=== PATIENT | male | born 1940 | race Caucasian/White ===

== ENCOUNTER 2017-02-04 16:18 | Inpatient (IN) ==
[2017-02-04] MEDS ORDERED: ACETAMINOPHEN 500 MG TABLET PO ONE (23:05)
[2017-02-04] MEDS: DOXYCYCLINE HYCLATE 100 MG TABLET.ORL PO SCH (23:15)
[2017-02-04] MEDS: BENZONATATE 100 MG CAPSULE PO PRN (23:17)
[2017-02-04] MEDS ORDERED: NAPROXEN 250 MG TABLET PO ONE (23:18)
[2017-02-05] MEDS: ACETAMINOPHEN 325 MG TABLET PO SCH ×2 (04:37→08:08)
[2017-02-05] MEDS: NAPROXEN 250 MG TABLET PO SCH (08:06)
[2017-02-05] MEDS: DOXYCYCLINE HYCLATE 100 MG TABLET.ORL PO SCH ×2 (08:07→20:57)
[2017-02-05] MEDS ORDERED: EZETIMIBE 10 MG TABLET PO SCH (09:00)
[2017-02-05] MEDS ORDERED: ASPIRIN 81 MG TAB.CHEW CHEWED SCH (09:00)
[2017-02-05] MEDS ORDERED: amLODIPine 10 MG TABLET PO SCH (09:00)
--- NOTE | 2017-02-05 14:07 | Internal Medicine Consult Note ---
Medical - CN: HPI - Data of Consult Consult date: 02/05/17 Requesting Physician: Hernandez Salter Primary Care Provider: Emmanuel Harding - Consult Narrative Reason for consult: medical management of chr medical conditions. History of present illness: Mr. Maurer is a 76 year old Male who is admitted to the hospital by Dr Salter from [facility] after a Back injection for lower back pain. The patient notes he has chr back pain, has seen Dr Land in the past, he has also seen chiropractor, he was then referred to pain clinic for localized injection, the patient notes he had one injection a few weeks ago which helped some, but then his pain came back, then he had another injection done yesterday. After the procedure the patient was not able to move his extremities , and had loss sensation to his legs, he also apparently lost bowel, bladder function? The patient underwent an MRI of the LS spine (without DWI), the patient was admitted to the hospital for observation. Medicine was consulted for medical management The patient has no complaints ,besides loss of sensation and movement below his inguinal region. He notes no significant changes since admission, Dr Salter is planning to get him to rehab to [facility] or [place] The patient denies any other complaints, renetly had some resp illness and was placed on doxycycline for same. He has been running a low grade temp since yesterday. Has no cough, no chills or rigors, no headache or dizziness. CC: Hernandez Salter All systems: reviewed and no additional remarkable complaints except as stated ( as per HPI) Medical - CN: PMH Medical history: HTN HLD chr back pain Surgical history: Right TKA Appendix removed when he was 14 yrs old Pertinent family history: mother from heart failure father from cva likely grand mother on mothers side has Cancer unknown. no h/o lupus in family or other autoimmune disease. Social history: smoked pipe in college drinks 1-2 glasses of wine a day no THC recreationally, but has used CBD For knee pain, Medical - CN: Meds Home Medications Medication Instructions Recorded Confirmed Type Acetaminophen [Tylenol] 2 tab PO BID 02/04/17 02/04/17 History Aspirin [Elena Chewable Aspirin] 81 mg PO DAILY 02/04/17 02/04/17 History Benzonatate [Tessalon Perle] 1 - 2 tab PO HS PRN 02/04/17 02/04/17 History Doxycycline 100 mg PO BID 02/04/17 02/04/17 History Ezetimibe 10 mg PO DAILY 02/04/17 02/04/17 History Naproxen Sodium 220 - 240 mg PO DAILY 02/04/17 02/04/17 History amLODIPine [Norvasc] 10 mg PO DAILY 02/04/17 02/04/17 History Allergies Allergy/AdvReac Type Severity Reaction Status Date / Time [id number] Reductase AdvReac Verified 02/04/17 22:24 Inhibitor Medical - CN: Exam - Constitutional Vitals: Temp Pulse Resp BP Pulse Ox 99.7 F H 99 H 16 147/68 94 02/05/17 08:08 02/05/17 08:00 02/05/17 08:00 02/05/17 08:00 02/05/17 08:00 Exam: GENERAL: The patient is a well-developed, well-nourished in no apparent distress. Is alert and oriented x3. VITAL SIGNS: Reviewed and as noted elsewhere. HEENT: Head is normocephalic and atraumatic. Extraocular muscles are intact. Pupils are equal, round, and reactive to light. Nares appeared normal. Mouth appears any without lesions. Mucous membranes are moist. NECK: Normal to inspection, Supple, No lymphadenopathy or thyromegaly. LUNGS: Air entry equal on both sides, no wheezing, crackles or rhonchi noted. No accessory muscles of respiration HEART: Regular rate and rhythm normal, S1 and S2 heard, no Gallop, S3 or Rub Noted, No Gross murmur heard. ABDOMEN: Soft, nontender, and nondistended. Positive bowel sounds. No hepatosplenomegaly was noted. EXTREMITIES: No cyanosis, clubbing, rash, lesions or edema. NEUROLOGIC: Cranial nerves II through XII are grossly intact.motor and sensory upper extermity intact Lower extremity, patient has deep touch sensation intact, light touch diminished , motor 0/0 both extremity, he has some + strength on hip extensors if his hips are fully flexed. reflex are absent, babinski absent/ no response. PSYCHIATRIC: Normal affect, Normal Mood. Appropriate Behavior. SKIN: No ulceration or wounds noted, No jaundice, No rash noted. Medical - CN: A/P - Narrative A/P Narrative: A/P Acute Spinal cord Injury/ Acute infarction ? : Management as per Dr Salter, given that TWI images were not done, and Throacic MRI not done, will get these done to complete workup Low grade fever: etiology:? Recent URI, get CXR, cbc, inpatient panel, check esr , crp, check procalcitonin HTN: Bp stable, start norvasc, his home medicatino HLD on zetia, allergic to statins, continue same DVT hep sq patient likely will be xferred to Rehab. unless any new findings on MRI
[2017-02-05 14:59] LABS: Basophils # (Auto) 0 K/mcL (0.0-0.3); Basophils % (Auto) 0.1 % (0.0-2.0); Eosinophils # (Auto) 0 K/mcL (0.0-0.7); Eosinophils % (Auto) 0.4 % (0.0-7.0); Granulocytes % (Auto) 87.5 % (38.0-78.0); Lymphocytes # (Auto) 0.7 K/mcL (1.5-4.8); Lymphocytes % (Auto) 6.7 % (15.5-49.0); Mean Cell Volume 93.4 fL (80.0-100.0); Mean Corpuscular HGB Conc 34.5 g/dL (31.0-36.0); Mean Corpuscular Hemoglobin 32.2 pg (26.0-34.0); Monocytes # (Auto) 0.6 K/mcL (0.1-0.9); Monocytes % (Auto) 5.3 % (1.0-12.0); Platelet Count 179 K/mcL (140-440); RBC 5.25 M/mcL (4.50-5.90); Red Cell Distribution Width 12.4 % (11.5-14.5)
[2017-02-05 15:17] LABS: ALT/SGPT 21 U/l (0-40); Albumin/Globulin Ratio 1.4 (1.0-2.3); Alkaline Phosphatase 67 U/L (39-117); Bilirubin,Direct < 0.2 mg/dL (0.0-0.3); Blood Urea Nitrogen 20 mg/dl (8-23); C-Reactive Protein 0.5 mg/dl (0.0-0.8); Gamma Glutamyl Transpeptidase 30 U/L (8-61); Magnesium 2.3 mg/dL (1.6-2.5); Uric Acid 4.6 mg/dL (2.5-8.0)
[2017-02-05 15:43] LABS: Erythrocyte Sedimentation Rate 15 mm/hr (0-15)
--- NOTE | 2017-02-05 16:34 | Magnetic Resonance Report ---
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 Diffusion-weighted imaging was also performed. Findings: There is abnormal increased signal and swelling of the spinal cord from T10 to the conus. It has increased signal on STIR and T2. The conus medullaris is at lower level of L1. The signal changes are new since a prior lumbar MRI done yesterday. Above the level of T10 and the thoracic cord is normal in size signal and contour. The diffusion-weighted sequences are not helpful on account of limited resolution and artifactual increased signal in the cord throughout the entire thoracic cord. There is no hematoma or abnormal fluid collection in the spinal canal following the recent epidural injection. No abscess is seen in the soft tissues around the spine and there is also no evidence of discitis or osteomyelitis.. There are stable old compression fractures at T7 and T10 with more subtle compression fractures at T8, T9 and L1. No recent fracture is present. There are small posterior bulges and spurs at multiple levels in the mid and upper thoracic spine as well as at T11-12. No disc herniation is present. There is no spinal canal or neural foraminal stenosis. Incidentally noted are few fat-containing intraosseous hemangiomas in the mid and lower thoracic spine. Impression: Swelling and signal changes throughout the spinal cord from T10 to L1. This could be due to an acute infarct or acute myelitis. Dr. Hadley was called with results Interpreted and Authenticated by: Thomas Vega 02/05/17
--- NOTE | 2017-02-05 16:35 | XRay Report ---
HISTORY: Reason for Exam:fever FINDINGS: The lungs are clear and well expanded. The heart size and pulmonary vasculature are normal. The aorta is tortuous area there has been no significant change since 12/15/16. IMPRESSION: Normal chest Interpreted and Authenticated by: Thomas Vega 02/05/17
[2017-02-05] MEDS: ACETAMINOPHEN 500 MG TABLET PO SCH (20:57)
[2017-02-05] MEDS: HEPARIN 5,000 UNIT/ML VIAL SQ SCH (20:58)
[2017-02-05] MEDS: BENZONATATE 100 MG CAPSULE PO PRN (21:11)
[2017-02-06] MEDS: amLODIPine 10 MG TABLET PO SCH (07:54)
[2017-02-06] MEDS: NAPROXEN 250 MG TABLET PO SCH (07:54)
[2017-02-06] MEDS: DOXYCYCLINE HYCLATE 100 MG TABLET.ORL PO SCH ×2 (07:54→20:01)
[2017-02-06] MEDS: ASPIRIN 81 MG TAB.CHEW PO SCH (07:54)
[2017-02-06] MEDS: EZETIMIBE 10 MG TABLET PO SCH (07:55)
[2017-02-06] MEDS: ACETAMINOPHEN 500 MG TABLET PO SCH ×2 (07:55→20:01)
[2017-02-06] MEDS: HEPARIN 5,000 UNIT/ML VIAL SQ SCH ×2 (10:23→20:02)
--- NOTE | 2017-02-06 10:34 | Internal Med Progress Note ---
Medical - PN: Subj Patient information: Note initiated : 02/06/17 at 10:32 am Service Date, if different from initiated Date: [] Patient: Rowdy Maurer 76 y/o M admitted on 02/04/17 for Lower Extremity Paralysis. Chief Complaint: [] Interval history: Mr. Maurer is a 76 year old Male who is admitted to the hospital by Dr Salter from [facility] after a Back injection for lower back pain. The patient notes he has chr back pain, has seen Dr Land in the past, he has also seen chiropractor, he was then referred to pain clinic for localized injection, the patient notes he had one injection a few weeks ago which helped some, but then his pain came back, then he had another injection done yesterday. After the procedure the patient was not able to move his extremities , and had loss sensation to his legs, he also apparently lost bowel, bladder function? The patient underwent an MRI of the LS spine (without DWI), the patient was admitted to the hospital for observation. Medicine was consulted for medical management The patient has no complaints ,besides loss of sensation and movement below his inguinal region. He notes no significant changes since admission, Dr Salter is planning to get him to rehab to [facility] or [place] The patient denies any other complaints, renetly had some resp illness and was placed on doxycycline for same. He has been running a low grade temp since yesterday. Has no cough, no chills or rigors, no headache or dizziness. Feb 06 patient seen examined, no acute overnight events, temp overnight afebirle, low grade temp this AM, patient has neg x ray, clinically asymptomatic, check UA, temp secondary to spinal infarct? the patients MRI reviewed, given his clinical presentation, myelelits is unlikely, spinal cord infarct is more likely. This is being managed by Dr Salter The patients home meds resumed, he is on doxycycline for URI/ cough symptoms, will need additional 5 days of treatment No other issues or complaints reported Pertinent ROS: Denies headache, dizziness Denies chest pain, palpitations Denies cough or shortness of breath Denies abdominal pain, nausea or vomiting. - Constitutional Vitals: Vital Signs Temp Pulse Resp BP Pulse Ox 99.7 F H 88 16 160/100 98 02/06/17 07:47 02/06/17 07:43 02/06/17 07:47 02/06/17 07:47 02/06/17 04:00 Period Temp Pulse Resp BP Sys/Conroy Pulse Ox Last 24 Hr 98.2 F-99.7 F 86-91 16-18 128-160/68-100 95-98 Intake and Output 02/05/17 02/06/17 02/06/17 21:59 05:59 13:59 Output Total 1500 / 1500 Balance -1500 / -1500 Weight 221 lb Intake & Output: Intake & Output 02/05/17 02/06/17 02/06/17 21:59 05:59 13:59 Output Total 1500 / 1500 Balance -1500 / -1500 Weight 221 lb Output: Urine Catheter Amount 1500 / 1500 Exam: Constitutional; Afebrile, cooperative, alert, not in distress. Eyes- No icterus, , No periorbital swelling Ears- Ext ear normal, hearing normal to conversation. Neck- Midline trachea, supple Respiratory system: Air Entry equal on both sides, No crackles or wheezing, no rhonchi. CVS- Rate rhythm regular, S1,S2 heard, no gallop, no rub. Abdomen- Soft nontender abdomen, no organomegaly, no tenderness, no guarding or rigidity, [employer]- AOOx3, un changed neuro exam pt in WC Medical - PN: Obj Da - Labs CBC & Chem 7: 02/05/17 14:10 02/05/17 14:10 Labs: Abnormal Lab Results 02/05/17 02/05/17 14:10 14:10 Hgb 16.9 H Gran % 87.5 H Lymph % (Auto) 6.7 L Gran # 9.6 H Lymph # (Auto) 0.7 L Carbon Dioxide 19 L Anion Gap 17.0 H Glucose 166 H Total Bilirubin 1.1 H Lactate Dehydrogenase 252 H Triglycerides 188 H Meds: Medications Acetaminophen (Tylenol) 1,000 mg PO BID [facility] Last Admin: 02/06/17 07:55 Dose: 1,000 mg Amlodipine Besylate (Norvasc) 10 mg PO DAILY [facility] Last Admin: 02/06/17 07:54 Dose: 10 mg Aspirin (Aspirin) 81 mg PO DAILY [facility] Last Admin: 02/06/17 07:54 Dose: 81 mg Benzonatate (Tessalon) 0 mg PO HSP PRN PRN Reason: Cough Last Admin: 02/05/17 21:11 Dose: 100 mg Doxycycline Hyclate (Doxycycline Hyclate) 100 mg PO BID [facility] Stop: 02/10/17 08:59 Last Admin: 02/06/17 07:54 Dose: 100 mg Ezetimibe (Zetia) 10 mg PO DAILY [facility] Last Admin: 02/06/17 07:55 Dose: 10 mg Heparin Sodium (Porcine) (Heparin) 5,000 unit SQ Q12 [facility] Last Admin: 02/06/17 10:23 Dose: 5,000 unit Naproxen (Naprosyn) 500 mg PO DAILY [facility] Last Admin: 02/06/17 07:54 Dose: 500 mg Medical - PN: A/P - Time Spent With Patient Total time spent is greater than 50% in coordination of care (as documented) at patient's floor/unit and/or counseling patient: - Narrative A/P Narrative: A/P Acute Spinal cord Injury/ Acute infarction : Management as per Dr Salter, will need rehab Low grade fever: etiology: unknow, check ua, procalcitonin is neg, pt on doxy for URI symptoms continue same. HTN: Bp stable, start norvasc, monitor. HLD on zetia, allergic to statins, continue same DVT hep sq Medical - PN: Qual - Stroke Symptom Onset Unknown: No - VTE Deep Vein Thrombosis/Pulmonary Embolism Present on Admission: No
[2017-02-06 12:10] LABS: Appearance,Urine CLEAR; Bacteria,Urine 0 /hpf (0); Bilirubin,Urine NEG (NEG); Color,Urine YELLOW; Glucose,Urine (UA) NEGATIVE (NEG); Leukocyte Esterase,Urine NEG /uL (NEG); Mucus,Urine MANY /hpf (0); Nitrate,Urine NEG (NEG); Protein,Urine NEG (NEG); Specific Gravity,Urine 1.032 (1.000-1.035); Urine Blood NEG mg/dL (<0.03); Urine Hyaline Cast 2 /lpf (0-2); Urine RBC 11 /hpf (0-1); Urine Squamous Epithelial Cell 0 /hpf (0-4); Urine WBC 4 /hpf (0-4)
--- NOTE | 2017-02-06 15:54 | Internal Med Progress Note ---
Medical - PN: Subj Patient information: Note initiated : 02/06/17 at 3:35 pm Service Date, if different from initiated Date: [] Patient: Rowdy Maurer 76 y/o M admitted on 02/06/17 for Lower Extremity Paralysis. Chief Complaint: Bilateral lower leg paralysis. S: Pt. in good spirits playing guitar and singing. O: VSS no neurologic change A: Conus Medullaris Syndrome P: Attempt to transfer to rehabilitation facility was not accomplished. Apparently pt requires PT, OT and Neurology Consult before [facility] can accept. Likely this won't occur until at least next Friday when OT is available. At this point will continue what can be provided at this facility until transfer obtained. Hospitalist will continue to medically manage.[] - Constitutional Vitals: Vital Signs Temp Pulse Resp BP Pulse Ox 99.3 F H 86 18 130/89 95 02/06/17 12:00 02/06/17 12:00 02/06/17 12:00 02/06/17 12:00 02/06/17 12:00 Period Temp Pulse Resp BP Sys/Conroy Pulse Ox Last 24 Hr 98.2 F-99.7 F 86-91 16-18 128-160/68-100 95-98 Intake and Output 02/06/17 02/06/17 02/06/17 05:59 13:59 21:59 Intake Total 760 / 760 Output Total 1500 / 1500 450 / 450 Balance -1500 / -1500 310 / 310 Intake & Output: Intake & Output 02/06/17 02/06/17 02/06/17 05:59 13:59 21:59 Intake Total 760 / 760 Output Total 1500 / 1500 450 / 450 Balance -1500 / -1500 310 / 310 Intake: Oral 760 / 760 Output: Urine Catheter Amount 1500 / 1500 450 / 450 Other: Percent of Meal Consumed 100% Medical - PN: Obj Da - Labs CBC & Chem 7: 02/05/17 14:10 02/05/17 14:10 Labs: Abnormal Lab Results 02/06/17 02/05/17 02/05/17 11:08 14:10 14:10 Hgb 16.9 H Gran % 87.5 H Lymph % (Auto) 6.7 L Gran # 9.6 H Lymph # (Auto) 0.7 L Carbon Dioxide 19 L Anion Gap 17.0 H Glucose 166 H Total Bilirubin 1.1 H Lactate Dehydrogenase 252 H Triglycerides 188 H Urine Urobilinogen 4.0 A Urine RBC 11 H Urine Mucus Many A Meds: Medications Acetaminophen (Tylenol) 1,000 mg PO BID [facility] Last Admin: 02/06/17 07:55 Dose: 1,000 mg Amlodipine Besylate (Norvasc) 10 mg PO DAILY [facility] Last Admin: 02/06/17 07:54 Dose: 10 mg Aspirin (Aspirin) 81 mg PO DAILY [facility] Last Admin: 02/06/17 07:54 Dose: 81 mg Benzonatate (Tessalon) 0 mg PO HSP PRN PRN Reason: Cough Last Admin: 02/05/17 21:11 Dose: 100 mg Doxycycline Hyclate (Doxycycline Hyclate) 100 mg PO BID [facility] Stop: 02/10/17 08:59 Last Admin: 02/06/17 07:54 Dose: 100 mg Ezetimibe (Zetia) 10 mg PO DAILY [facility] Last Admin: 02/06/17 07:55 Dose: 10 mg Heparin Sodium (Porcine) (Heparin) 5,000 unit SQ Q12 [facility] Last Admin: 02/06/17 10:23 Dose: 5,000 unit Naproxen (Naprosyn) 500 mg PO DAILY [facility] Last Admin: 02/06/17 07:54 Dose: 500 mg Medical - PN: A/P - Time Spent With Patient Total time spent is greater than 50% in coordination of care (as documented) at patient's floor/unit and/or counseling patient: Medical - PN: Qual - Stroke Symptom Onset Unknown: No - VTE Deep Vein Thrombosis/Pulmonary Embolism Present on Admission: No
[2017-02-06] MEDS: BENZONATATE 100 MG CAPSULE PO PRN (20:01)
[2017-02-07] MEDS: HEPARIN 5,000 UNIT/ML VIAL SQ SCH (08:14)
[2017-02-07] MEDS: NAPROXEN 250 MG TABLET PO SCH (08:14)
[2017-02-07] MEDS: ASPIRIN 81 MG TAB.CHEW PO SCH (08:15)
[2017-02-07] MEDS: ACETAMINOPHEN 500 MG TABLET PO SCH (08:15)
[2017-02-07] MEDS: amLODIPine 10 MG TABLET PO SCH (08:15)
[2017-02-07] MEDS: EZETIMIBE 10 MG TABLET PO SCH (08:15)
--- NOTE | 2017-02-07 09:19 | Internal Med Progress Note ---
Medical - PN: Subj Patient information: Note initiated : 02/07/17 at 9:08 am Service Date, if different from initiated Date: [] Patient: Rowdy Maurer 76 y/o M admitted on 02/06/17 for Lower Extremity Paralysis. Chief Complaint: []Bilateral leg paralysis S: Pt. states he slept good last evening and is continuing to work with PT and passive movement range of motion. O: Awake, Alert, appropriate and remarkably upbeat with extremely good attitude. VSS, no changes in neuro status A: Conus Medullaris Syndrome P: Pt. will be evaluated by OT today and continues to be working with PT. Pt requires documentation that PT and OT tolerated and presently attempting to fulfill that criteria. Likely [facility] still will not have a bed available until midweek next week. Pts. preference is [facility] for rehab.. Until [facility] has accepted we will continue provide services we have available. Hospitalist will continue to manage pt. medically. - Constitutional Vitals: Vital Signs Temp Pulse Resp BP Pulse Ox 97.0 F 69 20 148/93 95 02/07/17 08:00 02/07/17 08:00 02/07/17 08:00 02/07/17 08:00 02/07/17 08:00 Period Temp Pulse Resp BP Sys/Conroy Pulse Ox Last 24 Hr 97.0 F-99.3 F 69-103 16-20 116-148/72-93 91-95 Intake and Output 02/06/17 02/07/17 02/07/17 21:59 05:59 13:59 Intake Total 800 / 800 300 / 300 Output Total 750 / 750 950 / 950 Balance 50 / 50 -650 / -650 Weight 221 lb Intake & Output: Intake & Output 02/06/17 02/07/17 02/07/17 21:59 05:59 13:59 Intake Total 800 / 800 300 / 300 Output Total 750 / 750 950 / 950 Balance 50 / 50 -650 / -650 Weight 221 lb Intake: Oral 800 / 800 300 / 300 Output: Urine Catheter Amount 750 / 750 950 / 950 Medical - PN: Obj Da - Labs CBC & Chem 7: 02/05/17 14:10 02/05/17 14:10 Labs: Abnormal Lab Results 02/06/17 02/05/17 02/05/17 11:08 14:10 14:10 Hgb 16.9 H Gran % 87.5 H Lymph % (Auto) 6.7 L Gran # 9.6 H Lymph # (Auto) 0.7 L Carbon Dioxide 19 L Anion Gap 17.0 H Glucose 166 H Total Bilirubin 1.1 H Lactate Dehydrogenase 252 H Triglycerides 188 H Urine Urobilinogen 4.0 A Urine RBC 11 H Urine Mucus Many A Meds: Medications Acetaminophen (Tylenol) 1,000 mg PO BID [facility] Last Admin: 02/07/17 08:15 Dose: 1,000 mg Amlodipine Besylate (Norvasc) 10 mg PO DAILY [facility] Last Admin: 02/07/17 08:15 Dose: 10 mg Aspirin (Aspirin) 81 mg PO DAILY [facility] Last Admin: 02/07/17 08:15 Dose: 81 mg Benzonatate (Tessalon) 0 mg PO HSP PRN PRN Reason: Cough Last Admin: 02/06/17 20:01 Dose: 100 mg Doxycycline Hyclate (Doxycycline Hyclate) 100 mg PO BID [facility] Stop: 02/10/17 08:59 Last Admin: 02/06/17 20:01 Dose: 100 mg Ezetimibe (Zetia) 10 mg PO DAILY [facility] Last Admin: 02/07/17 08:15 Dose: 10 mg Heparin Sodium (Porcine) (Heparin) 5,000 unit SQ Q12 [facility] Last Admin: 02/07/17 08:14 Dose: 5,000 unit Naproxen (Naprosyn) 500 mg PO DAILY [facility] Last Admin: 02/07/17 08:14 Dose: 500 mg Medical - PN: A/P - Time Spent With Patient Total time spent is greater than 50% in coordination of care (as documented) at patient's floor/unit and/or counseling patient: Medical - PN: Qual - Stroke Symptom Onset Unknown: No - VTE Deep Vein Thrombosis/Pulmonary Embolism Present on Admission: No
[2017-02-07] MEDS: DOXYCYCLINE HYCLATE 100 MG TABLET.ORL PO SCH (10:35)
--- NOTE | 2017-02-07 14:11 | Discharge Summary ---
Medical - DS: Prov Patient information: Note initiated : 02/07/17 at 2:09 pm Service Date, if different from initiated Date: [] Patient: Rowdy Maurer 76 y/o M admitted on 02/04/17 for Lower Extremity Paralysis. Chief Complaint: LE paralysis Date of admission: 02/06/17 12:09 Discharge date: 02/07/17 Primary care physician: Emmanuel Harding Admitting clinician: Hernandez Salter Discharging clinician: Rina Pelayo Medical - DS: Meds - Discharge Medications Active and Home Medications: Home Medications Acetaminophen [Tylenol] 2 tab PO BID 02/04/17 [History Confirmed 02/04/17 Last Taken 02/04/17 08:00] Aspirin [Elena Chewable Aspirin] 81 mg PO DAILY 02/04/17 [History Confirmed Last Taken 02/04/17 08:00] Benzonatate [Tessalon Perle] 1 - 2 tab PO HS PRN 02/04/17 [History Confirmed Last Taken 02/03/17 21:00] Doxycycline 100 mg PO BID 02/04/17 [History Confirmed 02/04/17 Last Taken 08:00] Ezetimibe 10 mg PO DAILY 02/04/17 [History Confirmed 02/04/17 Last Taken 08:00] Naproxen Sodium 220 - 240 mg PO DAILY 02/04/17 [History Confirmed 02/04/17 Last Taken 02/04/17 08:00] amLODIPine [Norvasc] 10 mg PO DAILY 02/04/17 [History Confirmed 02/04/17 Last Taken 02/04/17 08:00] Medical - DS: Hosp Hospital course: From the Medicine Consult notes: Feb 05 Mr. Maurer is a 76 year old Male who is admitted to the hospital by Dr Salter from [facility] after a Back injection for lower back pain. The patient notes he has chronic back pain, has seen Dr Land in the past, he has also seen chiropractor, he was then referred to pain clinic for localized injection, the patient notes he had one injection a few weeks ago which helped some, but then his pain came back, then he had another injection done yesterday. After the procedure the patient was not able to move his extremities, and had loss sensation to his legs, he also apparently lost bowel, bladder function? The patient underwent an MRI of the LS spine (without DWI), the patient was admitted to the hospital for observation. Medicine was consulted for medical management The patient has no complaints ,besides loss of sensation and movement below his inguinal region. He notes no significant changes since admission, Dr Salter is planning to get him to rehab. The patient denies any other complaints, recently had some resp illness and was placed on doxycycline for same. He has been running a low grade temp since yesterday. Has no cough, no chills or rigors, no headache or dizziness. Feb 06 Patient seen examined, no acute overnight events, temp overnight afebirle, low grade temp this AM. Patient has neg x ray, clinically asymptomatic, check UA, temp secondary to spinal infarct? The patients MRI reviewed, given his clinical presentation, myelelits is unlikely, spinal cord infarct is more likely. This is being managed by Dr Salter The patients home meds resumed, he is on doxycycline for URI/ cough symptoms, will need additional 5 days of treatment No other issues or complaints reported. Transfer to [facility] was attempted, however is not felt he needed further acute hospitalization and a higher level of care. Movement towards rehabilitation placement started. Occupational therapy evaluation and not yet been completed. Looking at [facility] in [place]. No bed immediately available. Feb 07 Patient is stable. Kendall himself in the halls and wheelchair. Afebrile. Eager to get rehabilitation started. [facility] in [place] does not have a bed until next week, however [facility] in [place] does and can accept patient. Discussed with Dr. Cruz, attending covering for Dr. Salter as well as with patient. He is willing to go to [facility]. Discharge diagnosis: T10-L1 Spinal cord infarct - Time Spent with Patient Total time spent providing and/or coordinating discharge services: Greater than 30 minutes Medical - DS: Exam - Constitutional Vitals: Vital Signs Temp Pulse Resp BP Pulse Ox 02/07/17 12:00 97.4 F 20 137/89 95 02/07/17 08:00 97.0 F 69 20 148/93 95 02/07/17 04:00 97.9 F 69 20 132/88 93 02/06/17 23:57 97.9 F 84 20 116/72 91 02/06/17 20:00 98.0 F 103 H 16 135/89 91 02/06/17 16:00 98.9 F 100 H 18 123/89 95 Intake and Output 02/07/17 02/07/17 02/07/17 05:59 13:59 21:59 Intake Total 300 / 300 Output Total 950 / 950 Balance -650 / -650 Intake: Oral 300 / 300 Output: Urine Catheter Amount 950 / 950 Additional comments: Gen: In NAD Chest: Clear, unlabored CV: Regular Abd: Soft Neuro: A and O x 4; 0/5 strength in BLE, no reflexes Medical - DS: Data Labs on day of discharge: Preliminary micro results at discharge 02/05/17 14:18 Blood Culture - Preliminary Blood 02/05/17 14:10 Blood Culture - Preliminary Blood - Impressions MRI Spine w/o contrast: History: 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 Diffusion-weighted imaging was also performed. Findings: There is abnormal increased signal and swelling of the spinal cord from T10 to the conus. It has increased signal on STIR and T2. The conus medullaris is at lower level of L1. The signal changes are new since a prior lumbar MRI done yesterday. Above the level of T10 and the thoracic cord is normal in size signal and contour. The diffusion-weighted sequences are not helpful on account of limited resolution and artifactual increased signal in the cord throughout the entire thoracic cord. There is no hematoma or abnormal fluid collection in the spinal canal following the recent epidural injection. No abscess is seen in the soft tissues around the spine and there is also no evidence of discitis or osteomyelitis.. There are stable old compression fractures at T7 and T10 with more subtle compression fractures at T8, T9 and L1. No recent fracture is present. There are small posterior bulges and spurs at multiple levels in the mid and upper thoracic spine as well as at T11-12. No disc herniation is present. There is no spinal canal or neural foraminal stenosis. 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 Impression: Swelling and signal changes throughout the spinal cord from T10 to L1. This could be due to an acute infarct or acute myelitis. Medical - DS: A/P - Patient/Caregiver Discharge Instructions Activity: as per physical therapy, increase activity as tolerated Diet: Regular Diet Additional Instructions: Continue doxycycline through 02/11/2017 - Follow up Plan Disposition: Xfer Inpatient Rehab Fac Prognosis: Fair Rehab Potential: Fair I certify that the patient requires SNF services: Yes Overall status at discharge: patient is not back to baseline Medical - DS: Qual - VTE Deep Vein Thrombosis/Pulmonary Embolism Present on Admission: No
[2017-02-07] MEDS ORDERED: ACETAMINOPHEN 500 MG TABLET PO SCH (21:00)
[2017-02-07] MEDS ORDERED: BENZONATATE 100 MG CAPSULE PO PRN (21:00)
[2017-02-07] MEDS ORDERED: HEPARIN 5,000 UNIT/ML VIAL SQ SCH (21:00)
[2017-02-07] MEDS ORDERED: DOXYCYCLINE HYCLATE 100 MG TABLET.ORL PO SCH (21:00)
[2017-02-08] MEDS ORDERED: amLODIPine 10 MG TABLET PO SCH (09:00)
[2017-02-08] MEDS ORDERED: NAPROXEN 250 MG TABLET PO SCH (09:00)
[2017-02-08] MEDS ORDERED: EZETIMIBE 10 MG TABLET PO SCH (09:00)
[2017-02-08] MEDS ORDERED: ASPIRIN 81 MG TAB.CHEW PO SCH (09:00)
== END 2017-02-07 14:50 | DRG 91 ==
LOC: ICU → PREINTOOBSV 16:55 → MEDSUR 02-06 17:06
PROVIDERS: ADMIT Pain Medicine Interventional Pain Medicine; ATTEND Internal Medicine